=== PATIENT | female | born 1980 ===

== ENCOUNTER 2021-10-26 13:50 | Outpatient (CLI) | payer OTHER | END 2021-10-26 15:45 | disposition home or self-care (01) | LOC: PRENATAL 13:50 | PROVIDERS: ATTEND Obstetrics & Gynecology Maternal & Fetal Medicine | DX: O35.0XX0 Maternal care for (suspected) central nervous system malformation in fetus, not applicable or unspecified (principal); O35.3XX0 Maternal care for (suspected) damage to fetus from viral disease in mother, not applicable or unspecified; O09.529 Supervision of elderly multigravida, unspecified trimester; O09.819 Supervision of pregnancy resulting from assisted reproductive technology, unspecified trimester; Z3A.20 20 weeks gestation of pregnancy ==

== ENCOUNTER 2022-01-14 16:11 | Outpatient (CLI) | payer OTHER | END 2022-01-14 17:40 | disposition home or self-care (01) | LOC: PRENATAL 16:11 | PROVIDERS: ATTEND Obstetrics & Gynecology Maternal & Fetal Medicine | DX: Z76.1 Encounter for health supervision and care of foundling (principal) ==

== ENCOUNTER 2022-01-28 14:45 | Outpatient (CLI) | payer OTHER | END 2022-01-28 15:45 | disposition home or self-care (01) | LOC: PRENATAL 14:45 | PROVIDERS: ATTEND Obstetrics & Gynecology Maternal & Fetal Medicine | DX: O36.8199 Decreased fetal movements, unspecified trimester, other fetus (principal); O26.849 Uterine size-date discrepancy, unspecified trimester; Z3A.34 34 weeks gestation of pregnancy ==

== ENCOUNTER 2022-04-18 12:30 | Outpatient (CLI) | payer OTHER | END 2022-04-18 12:39 | disposition home or self-care (01) | LOC: RAD 12:30 | PROVIDERS: ATTEND Chiropractor | DX: M54.2 Cervicalgia (principal); M54.6 Pain in thoracic spine; M25.512 Pain in left shoulder; N63.0 Unspecified lump in unspecified breast ==

== ENCOUNTER 2024-07-02 07:01 | Outpatient (CLI) | payer OTHER | END 2024-07-02 07:02 | disposition home or self-care (01) | LOC: PRENATAL 07:01 | PROVIDERS: ATTEND Obstetrics & Gynecology Maternal & Fetal Medicine | DX: O44.00 Complete placenta previa NOS or without hemorrhage, unspecified trimester (principal); O09.529 Supervision of elderly multigravida, unspecified trimester; O34.219 Maternal care for unspecified type scar from previous cesarean delivery; O43.90 Unspecified placental disorder, unspecified trimester; Z3A.20 20 weeks gestation of pregnancy ==